=== PATIENT | male | born 1990 | race Caucasian/White ===

== ENCOUNTER 2017-02-06 12:30 | Emergency (ER) | payer OTHER ==
[~2017-02-06] VITALS: Ht 175.2 cm; Wt 81.6 kg
[~2017-02-06 12:30] MED LIST: L-LYSINE1000 MG PO; PREDNICOT20 MG PO; ZITHROMAX Z PA250 MG PO; [UNRECOGNIZED DRUG - CODE] PO
[2017-02-06] MEDS ORDERED: NAPROSYN500 MG PO (12:54)
[2017-02-06] MEDS ORDERED: 'PARAFON FORTE500 M1 PO (12:54)
== END 2017-02-06 14:57 | disposition home or self-care (01) ==
LOC: ED 12:30
DX: M43.6 Torticollis (principal); R03.0 Elevated blood-pressure reading, without diagnosis of hypertension; M54.2 Cervicalgia; R06.7 Sneezing